=== PATIENT | male | born 1985 | race Caucasian/White ===

== ENCOUNTER 2022-10-11 03:29 | Emergency (ER) | payer SELFPAY ==
[2022-10-11 03:30] VITALS: BP 177/105; PULSE 108; RESP 18; TEMP 36.6; O2SAT 100; BMI 23.1
--- NOTE | 2022-10-11 03:34 | XRR_ITS ---
PROCEDURE INFORMATION: Exam: XR Chest Exam date and time: 10/11/2022 3:37 AM Age: 37 years old Clinical indication: Patient HX: C/O palpitations; Additional info: Cp TECHNIQUE: Imaging protocol: Radiologic exam of the chest. Views: 1 view. COMPARISON: No relevant prior studies available. FINDINGS: Lungs: Scattered small pulmonary granulomas. Negative for consolidation. Pleural spaces: Unremarkable. No pleural effusion. No pneumothorax. Heart/Mediastinum: Unremarkable. No cardiomegaly. Bones/joints: Unremarkable. XR/XR chest 1V portable [id number] IMPRESSION: Negative for acute pulmonary disease.
--- NOTE | 2022-10-11 03:34 | ECG_ITS ---
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 Measurements Intervals [place] Rate: 93 P: 71 FL: 208 QRS: 71 QRSD: 120 T: 65 QT: 477 QTc: 596 Interpretive Statements SINUS RHYTHM POSSIBLE LEFT ATRIAL ENLARGEMENT [-0.1mV P-WAVE IN V1/V2] POSSIBLE RIGHT VENTRICULAR CONDUCTION DELAY [RSR (QR) IN V1/V2] NONSPECIFIC T-WAVE ABNORMALITY PROLONGED QT INTERVAL No previous ECG available for comparison Electronically Signed On 10-11-2022 17:49:10 CDT by Gaurav Beyer M.D. [email or web address]
--- NOTE | 2022-10-11 03:40 | W.ED.DIZZY ---
HPI - Dizziness General: Chief Complaint: Dizziness Stated Complaint: syncope Time Seen by Provider: 10/11/22 03:30 Source: patient and EMS Mode of arrival: EMS Limitations: no limitations History of Present Illness: HPI Narrative: 37-year-old male states that he woke up roughly an hour ago he states he woke up in a panic feeling extremely anxious he states he is diaphoretic and felt like his heart was racing. Denies any chest pain he states he was having some shortness of breath and felt lightheaded. He states he started to feel improved currently no history of heart disease he denies any worsening improving factors. Associated symptoms: Reports palpitations; Denies chest pain, chills, headache(s), nausea or vomiting Review of Systems Const: Denies: fever(s), chills or body aches ENMT: Denies: throat pain or dental pain Card: Reports: palpitations and lightheadedness; Denies: chest pain Resp: Reports: dyspnea GI: Denies: abdominal pain, nausea, vomiting or diarrhea : Denies: dysuria Musc: Denies: neck pain or back pain Skin/Breast: Denies: rash Neuro: Denies: headache(s) Psych: Denies: depression PFSH ED PFSH: Medical History No pertinent past medical history Social History (Updated 10/11/22 @ 03:40 by Mary Woods MD) Substance/Drug Use: current Physical Exam Const: COMMON NORMALS: no acute distress, patient oriented x3 and healthy appearing GENERAL APPEARANCE: anxious HENMT: COMMON NORMALS: normocephalic and atraumatic HEAD & SCALP: normocephalic and atraumatic Eye: COMMON NORMALS: conjunctivae normal CONJUNCTIVA: Yes conjunctivae normal Neck/C-Spine: COMMON NORMALS: full ROM and supple Chest: COMMONS NORMALS: normal inspection of the chest and normal palpation of entire chest wall Resp: COMMON NORMALS: normal respiratory effort, No retractions, No use of accessory muscles and clear to auscultation bilaterally AUSCULTATION: clear to auscultation bilaterally Cardio: COMMON NORMALS: regular rhythm and No murmurs present (Cardio) RATE: tachycardic RHYTHM: regular rhythm GI: COMMON NORMALS: Normal to inspection, nondistended, normoactive bowel sounds present, Soft to palpation, non-tender and no masses PALPATION: Yes Soft to palpation Extremity: COMMON NORMALS: normal to inspection and full ROM Neuro: COMMON NORMALS: patient oriented x3, moves all extremities and no focal motor deficits Psych: COMMON NORMALS: mental status grossly normal, Normal thought process present and cooperative THOUGHT PROCESS: Normal thought process present Skin: COMMON NORMALS: no rashes or lesions noted and no wounds GENERAL SKIN EXAM: no rashes or lesions noted Course Vital Signs: Vital signs: Vital Signs Temperature 97.9 F 10/11/22 03:30 Pulse Rate 108 H 10/11/22 03:30 Respiratory Rate 18 10/11/22 03:30 Blood Pressure 177/105 10/11/22 03:30 Pulse Oximetry 100 10/11/22 03:30 Oxygen Delivery Me thod Room Air 10/11/22 03:30 MDM - Dizziness Medical Decision Making Patient presents after waking up with palpitations feeling quite anxious likely a panic attack he is well-appearing here he had slight hypomagnesia and did replace his mag here. His troponin is negative he states he feels improved and does not want to stay for his 2-hour troponin if with his history is likely anxiety no signs of acute coronary syndrome or pulm embolism he is to follow-up with PCP and return if worsening. Medical Records I reviewed the patient's medical records. Lab Data I reviewed the patient's lab results. 10/11/22 03:35 10/11/22 03:35 Laboratory Results WBC 17.9 10^3/uL (4.0-10.0) H 10/11/22 03:35 RBC 4.75 10^6/uL (4.1-5.3) 10/11/22 03:35 Hgb 14.2 g/dL (11.7-16.6) 10/11/22 03:35 Hct 43.3 % (42.0-52.0) 10/11/22 03:35 MCV 91.2 fl (80-94) 10/11/22 03:35 MCH 29.9 pg (28.0-34.0) 10/11/22 03:35 MCHC 32.8 g/dL (30.0-36.0) 10/11/22 03:35 RDW 13.6 % (12.1-15.1) 10/11/22 03:35 Plt Count 266 10^3/cmm (130-400) 10/11/22 03:35 MPV 11.5 fL (7.4-10.4) H 10/11/22 03:35 Neut % (Auto) 54.3 % 10/11/22 03:35 Lymph % (Auto) 35.2 % 10/11/22 03:35 [place] % (Auto) 8.1 % 10/11/22 03:35 Eos % (Auto) 1.4 % 10/11/22 03:35 Baso % (Auto) 0.7 % 10/11/22 03:35 Neut # (Auto) 9.67 10^3/uL (1.8-7.7) H 10/11/22 03:35 Lymph # (Auto) 6.3 10^3/uL (0.8-4.8) H 10/11/22 03:35 [place] # (Auto) 1.5 10^3/uL (0.2-0.9) H 10/11/22 03:35 Eos # (Auto) 0.3 10^3/uL (0.0-0.8) 10/11/22 03:35 Baso # (Auto) 0.1 10^3/uL (0.0-0.1) 10/11/22 03:35 Nucleated RBC % (auto) 0 % 10/11/22 03:35 Nucleated RBCs # 0.0 /100WBC 10/11/22 03:35 Sodium 136 mmol/L (136-145) 10/11/22 03:35 Potassium 3.2 mmol/L (3.5-5.1) L 10/11/22 03:35 Chloride 99 mmol/L (98-107) 10/11/22 03:35 Carbon Dioxide 23 mmol/L (22-29) 10/11/22 03:35 Anion Gap 17.2 (5-19) 10/11/22 03:35 BUN 4 mg/dL (6-20) L 10/11/22 03:35 Creatinine 0.9 mg/dL (0.7-1.2) 10/11/22 03:35 GFR Calculation 94.4 mL/min (90-130) 10/11/22 03:35 Glucose 120 mg/dL (65-115) H 10/11/22 03:35 Calculated Osmolality 280 mOsm/kg (285-295) L 10/11/22 03:35 Calcium 8.2 mg/dL (8.5-10.5) L 10/11/22 03:35 Magnesium 1.6 mg/dL (1.7-2.3) L 10/11/22 03:35 Total Bilirubin 0.2 mg/dL (0.15-1.2) 10/11/22 03:35 AST 15 U/L (0-40) 10/11/22 03:35 ALT 9 U/L (0-41) 10/11/22 03:35 Alkaline Phosphatase 138 U/L (40-130) H 10/11/22 03:35 Total Protein 7.0 g/dL (6.6-8.7) 10/11/22 03:35 Albumin 4.3 g/dL (3.5-5.2) 10/11/22 03:35 Globulin 2.7 g/dL (1.3-4.6) 10/11/22 03:35 Discharge Plan Discharge Patient Disposition: Home Clinical Impression: Palpitations Discharge Orders: Discharge ED (Routine); Ordered 10/11/22 Ordered By: Mary Woods Discharge Diet: Advance as tolerated Discharge Activity: Resume usual activity Patient Instructions: Heart Palpitations (ED) Coding Level of Care Code ED Pred[employer] Control Trapper for Rell Mack
[2022-10-11 03:41] LABS: Basophils # 0.1 10^3/uL (0.0-0.1); Basophils % 0.7 %; Eosinophils # 0.3 10^3/uL (0.0-0.8); Eosinophils % 1.4 %; Hematocrit 43.3 % (42.0-52.0); Hemoglobin 14.2 g/dL (11.7-16.6); Lymphocytes # 6.3 10^3/uL (0.8-4.8); Lymphocytes % 35.2 %; Mean Corpuscular HGB Conc 32.8 g/dL (30.0-36.0); Mean Corpuscular Hemoglobin 29.9 pg (28.0-34.0); Mean Corpuscular Volume 91.2 fl (80-94); Mean Platelet Volume 11.5 fL (7.4-10.4); Monocytes # 1.5 10^3/uL (0.2-0.9); Monocytes % 8.1 %; Neutrophils # 9.67 10^3/uL (1.8-7.7); Neutrophils % 54.3 %; Nucleated Red Blood Cells % 0 %; Platelet Count 266 10^3/cmm (130-400); Red Blood Count 4.75 10^6/uL (4.1-5.3); Red Cell Distribution Width 13.6 % (12.1-15.1); White Blood Count 17.9 10^3/uL (4.0-10.0)
[2022-10-11] MEDS: sodium chloride 0.9% 1,000 ML 999 ML IV (03:42)
[2022-10-11] MEDS: LORazepam 2 mg/mL INJ 1 mL 1 MG IVP (03:43)
[2022-10-11 04:01] LABS: Alanine Aminotransferase 9 U/L (0-41); Albumin Level 4.3 g/dL (3.5-5.2); Alkaline Phosphatase 138 U/L (40-130); Anion Gap 17.2 (5-19); Aspartate Amino Transferase 15 U/L (0-40); Blood Urea Nitrogen 4 mg/dL (6-20); Calcium 8.2 mg/dL (8.5-10.5); Carbon Dioxide 23 mmol/L (22-29); Chloride 99 mmol/L (98-107); Globulin 2.7 g/dL (1.3-4.6); Glomerular Filtration Rate 94.4 mL/min (90-130); Glucose 120 mg/dL (65-115); Osmolality Calculated 280 mOsm/kg (285-295); Potassium 3.2 mmol/L (3.5-5.1); Sodium 136 mmol/L (136-145); Total Bilirubin 0.2 mg/dL (0.15-1.2)
[2022-10-11 04:42] LABS: Magnesium 1.6 mg/dL (1.7-2.3)
[2022-10-11 04:57] LABS: Troponin(5th) Baseline 6 ng/L (0-15)
[2022-10-11] MEDS: magnesium sulfate premix 2 GM/50 ML PIGGYBACK IV (05:10)
[2022-10-11 06:16] VITALS: BP 125/84; PULSE 93; RESP 16; O2SAT 99
== END 2022-10-11 06:17 | disposition home or self-care (01) ==
PROVIDERS: Emergency Provider Emergency Medicine
DX: R00.2 Palpitations (principal); E83.42 Hypomagnesemia
CPT/HCPCS: 71045; 80053; 83735; 84484; 85025; 93005; 96365; 96375; 99284; J2060; J3475; J7030